=== PATIENT | female | born 1975 | race Caucasian/White ===

== ENCOUNTER 2021-06-02 09:16 | Day surgery (SDC) | payer OTHER ==
[2021-05-31 12:46] LABS: COVID AG,FIA SOURCE NASAL SWAB
[~2021-06-02] VITALS: Ht 162.6 cm; Wt 127.3 kg
[~2021-06-02 09:16] MED LIST: GABA-1181 PO; PANT-31 PO; QUET100T PO; SODIUM CHLORIDE 0.9% 1,000 ML ONE
[2021-06-02] MEDS ORDERED: PROPOFOL 1% 20 ML VIAL IVP ONE (09:17)
[2021-06-02] MEDS ORDERED: LIDOCAINE/PF 2% 5 ML VIAL IM ONE (09:17)
[2021-06-02] MEDS ORDERED: SODIUM CHLORIDE 0.9% 1,000 ML IV ONE (10:00)
[2021-06-02 10:29] LABS: GLUCOMETER DEV NAME(LOC) SDS.; GLUCOSE,POINT OF CARE 212 MG/DL (70-110)
[2021-06-02] MEDS ORDERED: MIDAZOLAM HCL 5 MG/ML VIAL ONE (11:24)
[2021-06-02] MEDS ORDERED: FentaNYL CITRATE PF 100 MCG/2 ML VIAL ONE (11:24)
[2021-06-02] MEDS ORDERED: OXYGEN THERAPY IH SCH (20:00)
== END 2021-06-02 13:50 | disposition home or self-care (01) ==
LOC: SURGERY 09:16
PROVIDERS: ATTEND Specialist
DX: Z12.11 Encounter for screening for malignant neoplasm of colon (principal); D12.4 Benign neoplasm of descending colon; D12.8 Benign neoplasm of rectum; F41.9 Anxiety disorder, unspecified; F44.81 Dissociative identity disorder; K21.9 Gastro-esophageal reflux disease without esophagitis; E11.9 Type 2 diabetes mellitus without complications; Z90.710 Acquired absence of both cervix and uterus; Z98.890 Other specified postprocedural states; Z82.5 Family history of asthma and other chronic lower respiratory diseases; Z82.49 Family history of ischemic heart disease and other diseases of the circulatory system; Z83.79 Family history of other diseases of the digestive system; Z80.49 Family history of malignant neoplasm of other genital organs; Z87.891 Personal history of nicotine dependence
CPT/HCPCS: 45385; 82962; 87426; 88305; C1769; C9803; J2704; J3490; J7030; J2250; J3010

== ENCOUNTER 2022-01-08 11:53 | Emergency (ER) | payer OTHER ==
[~2022-01-08] VITALS: Ht 160 cm; Wt 131.8 kg
[~2022-01-08 11:53] MED LIST changes: -SODIUM CHLORIDE 0.9% 1,000 ML ONE
[2022-01-08] MEDS ORDERED: METF-1211 PO (12:02)
[2022-01-08] MEDS ORDERED: SEMA0.25 SQ (12:02)
[2022-01-08] MEDS ORDERED: ONDANSETRON HCL 4 MG/2 ML VIAL IVP ONE (12:30)
[2022-01-08] MEDS ORDERED: PB/HYOSCY/ATR/SCOP/LIDO/MAALOX 55 ML BOTTLE PO ONE (12:30)
[2022-01-08 12:49] LABS: BASOPHILS % (AUTO) 1.1 % (0.0-2.0); EOSINOPHILS % (AUTO) 10.5 % (1.0-6.0); HEMATOCRIT 40.8 % (36-46); HEMOGLOBIN 13.9 g/dL (12.0-16.0); LYMPHOCYTES # (AUTO) 2.6 K/uL (1.0-4.8); LYMPHOCYTES % (AUTO) 29.6 % (22.0-44.0); MEAN CORPUSCULAR HEMOGLOBIN 30.6 pg (26.0-34.0); MEAN CORPUSCULAR HGB CONC 34.1 G/dL (31.0-37.0); MEAN CORPUSCULAR VOLUME 90 fL (80-100); MONOCYTES # (AUTO) 0.6 K/uL (0.1-1.0); MONOCYTES % (AUTO) 6.6 % (2.0-9.0); NEUTROPHILS # (AUTO) 4.5 K/uL (1.8-7.7); NEUTROPHILS % (AUTO) 52.2 % (40.0-70.0); PLATELET COUNT (AUTO) 198 K/uL (150-450); RED BLOOD CELL COUNT(AUTO) 4.55 MIL/uL (4.00-5.20); RED CELL DISTRIBUTION WIDTH 13.1 % (11.5-14.5)
[2022-01-08 13:20] VITALS: BP 133/79
[2022-01-08 13:27] LABS: CALCIUM, TOTAL 9.1 mg/dL (8.8-10.5); CARBON DIOXIDE 33 mmol/L (22-29); CREATININE 0.92 mg/dL (0.60-1.30); GLOMERULAR FILTR. RATE CALC > 60 mL/min (>60); GLUCOSE,RANDOM 281 mg/dL (70-110); POTASSIUM 3.8 mmol/L (3.5-5.1); SODIUM SERUM 139 mmol/L (136-145); UREA NITROGEN, BLOOD 7 mg/dL (7-18)
[2022-01-08 13:34] LABS: ALANINE AMINOTRANSFERASE 34 U/L (12-78); ALBUMIN 3.5 g/dL (3.4-5.0); ALKALINE PHOSPHATASE 67 U/L (46-116); ASPARTATE AMINOTRANSFERASE 15 U/L (15-37); BILIRUBIN,TOTAL 0.5 mg/dL (0.1-1.0); LIPASE 558 U/L (73-393); TOTAL PROTEIN, SERUM 6.6 g/dL (6.4-8.2)
[2022-01-08] MEDS ORDERED: SODIUM CHLORIDE 0.9% 1,000 ML IV ONE (15:15)
[2022-01-08] MEDS ORDERED: MORPHINE SULFATE 4 MG/ML SYRINGE IVP ONE (15:15)
[2022-01-08 19:24] LABS: ANION GAP 6 mmol/L (8-16); CHLORIDE 100 mmol/L (98-107)
== END 2022-01-08 16:26 | disposition home or self-care (01) ==
LOC: EMS 11:54
DX: K85.90 Acute pancreatitis without necrosis or infection, unspecified (principal); E11.9 Type 2 diabetes mellitus without complications; F17.210 Nicotine dependence, cigarettes, uncomplicated; Z90.710 Acquired absence of both cervix and uterus; Z91.040 Latex allergy status
CPT/HCPCS: 36415; 74176; 76705; 80053; 82962; 83690; 85025; 93005; 96361; 96374; 96375; 99285; J2270; J2405; J7030

== ENCOUNTER 2022-03-13 12:08 | Emergency (ER) | payer OTHER ==
[~2022-03-13] VITALS: Ht 160 cm; Wt 131.8 kg
[~2022-03-13 12:08] MED LIST changes: +METF-1211 PO; +SEMA0.25 SQ
[2022-03-13] MEDS ORDERED: KETOROLAC TROMETHAMINE 60 MG/2 ML VIAL IM ONE (13:15)
[2022-03-13] MEDS ORDERED: LIDOCAINE 5% TRANSDERMAL PATCH TD ONE (13:15)
[2022-03-13] MEDS ORDERED: CYCLOBENZAPRINE HCL 10 MG TABLET PO ONE (13:15)
[2022-03-13 13:16] LABS: GLUCOSE,POINT OF CARE 173 MG/DL (70-110)
[2022-03-13 13:37] VITALS: BP 120/65
[2022-03-13] MEDS ORDERED: IBUP-2070 PO (13:37)
[2022-03-13] MEDS ORDERED: CYCL-448 PO (13:37)
== END 2022-03-13 15:16 | disposition home or self-care (01) ==
LOC: EMS 12:08
DX: G89.29 Other chronic pain (principal); M54.50 Low back pain, unspecified; E11.9 Type 2 diabetes mellitus without complications
CPT/HCPCS: 82962; 96372; 99283; J1885